=== PATIENT | female | born 1995 | race Caucasian/White ===

== ENCOUNTER 2017-11-05 09:57 | Inpatient (IN) | payer OTHER ==
[~2017-11-05] VITALS: Ht 167.6 cm; Wt 92.5 kg
[2017-11-05] VITALS (40 sets, daily range): BP systolic 114–151; BP diastolic 62–99
[2017-11-05] MEDS ORDERED: D5 LR IV SOLUTION 1,000 ML IV ONE (10:16)
[2017-11-05] MEDS ORDERED: D5 LR IV SOLUTION 1,000 ML IV SCH ×2 (10:38→11:34)
[2017-11-05] MEDS ORDERED: MINERAL OIL CONCENTRATE 99.9% 15 ML UDC TOP PRN (10:45)
[2017-11-05 10:51] LABS: BASOPHILS % (AUTO) 0 % (0-10); EOSINOPHILS # (AUTO) 0.1 10^3/uL (0.0-0.3); EOSINOPHILS % (AUTO) 1 % (0-10); HEMATOCRIT 33 % (35-52); LYMPHOCYTES % (AUTO) 16 % (12-44); MEAN CORPUSCULAR HEMOGLOBIN 33 PG (25-34); MEAN CORPUSCULAR HGB CONC 34 G/DL (32-36); MEAN CORPUSCULAR VOLUME 96 FL (80-99); MEAN PLATELET VOLUME 9.8 FL (7.4-10.4); MONOCYTES # (AUTO) 0.6 X 10^3 (0.0-1.0); MONOCYTES % (AUTO) 9 % (0-12); NEUTROPHILS # (AUTO) 4.7 X 10^3 (1.8-7.8); NEUTROPHILS % (AUTO) 74 % (42-75); PLATELET COUNT 178 10^3/uL (130-400); RED BLOOD COUNT 3.38 10^6/uL (4.35-5.85); RED CELL DISTRIBUTION WIDTH 14.1 % (10.0-14.5); WHITE BLOOD COUNT 6.3 10^3/uL (4.3-11.0)
[2017-11-05] MEDS ORDERED: OXYTOCIN/NORMAL SALINE 500 ML IV SCH ×3 (11:33→11:42)
--- NOTE | 2017-11-05 11:41 | History & Physical ---
History and Physical Date Seen by Provider: Nov 05, 2017 Time Seen by Provider: 11:37 this patient is a 21-year-old G1 white female with a due date of November 18, 2017 she presented to clinic today for follow-up due to oligohydramnios and mildly elevated blood pressure blood press. Her DTRs are 3-4 over 4 globallyres were increased today 145/95 and she showed protein in her urine. she reports having episodic fluid leakage from the vagina. She is not feeling with this as her bladder but she is unsure. She reports that is seen to be more than vaginal discharge. Nitrazine on this date was equivocal. Patient's JAIDEN 3 days ago was 43 and had been normal at 28 weeks gestation. She is GBS culture was negative on October 27, 2017. Sent to labor and delivery management secondary to her preeclampsia and concern for potential rupture membranes of unknown duration. Patient had an NST in my clinic that showed a reactive NST with occasional contractions the patient reported were taking her breath away Allergies are none Occasions are vitamins Medical social and surgical histories are per the antepartum record HEENT exam is normal Neck is supple no lymphadenopathy no thyromegaly Abdomen is gravid soft nontender nondistended Extremities show no clubbing cyanosis. There is no Homans sign. Pelvic exam shows a cervix that is not quite 3 cm dilated 89 percent effaced and 0 to -1 station. Position and soft Amniotomy was performed concurrent with this exam releasing a small amount of clear fluid Monitor shows normal heart rate pattern with occasional and irregular contractions Laboratory Tests 11/05/17 10:35 Assessment and plan 38-1/7 weeks gestation in a patient with elevated blood pressure consistent with mild preeclampsia and with oligohydramnios and with possible early labor and possible rupture membranes of unknown duration. Patient has been started on Pitocin and amniotomy has been performed. We will go ahead and add ampicillin for empiric prophylaxis. We anticipate a vaginal delivery 38-1/7 weeks gestation with preeclampsia and oligohydramnios and possible unknown duration rupture membranes Allergies and Home Medications Allergies Coded Allergies: No Known Drug Allergies (Unverified , 11/05/17) Clinical Quality Measures DVT/VTE Risk/Contraindication: Risk Factor Score Per Nursin RFS Level Per Nursing on Admit: 1=Low/No VTE PPX MATT LALA MD Nov 05, 2017 11:41 am
[2017-11-05] MEDS ORDERED: AMPICILLIN INJECTION 2,000 MG in NS (IVPB) 50 ML IV NR (11:45)
[2017-11-05] MEDS ORDERED: INFLUENZA TRIvalent 2017-2018 0.5 ML/45 MCG SYR IM ONE (11:45)
[2017-11-05] MEDS ORDERED: oxyCODONE/APAP 10/325MG (PERCOCET 10) TABLET PO PRN (11:45)
[2017-11-05] MEDS ORDERED: ONDANSETRON 4 MG/2 ML (SDV) Z0FRAN IVP PRN (11:45)
[2017-11-05] MEDS ORDERED: TETANUS,DIPTH,PERTUSS P/F (BOOSTRIX) 0.5 ML VIAL IM ONE (11:45)
[2017-11-05] MEDS ORDERED: MEASLES,MUMPS,RUBELLA 1 EA INJ SC ONE (11:45)
[2017-11-05] MEDS ORDERED: AMPICILLIN INJECTION 1,000 MG in NS (IVPB) 50 ML IV SCH (12:00)
[2017-11-05] MEDS ORDERED: SUFENTA 0.6MCG/ML BUPIVA 0.125 100 ML ONE (13:58)
[2017-11-05] MEDS ORDERED: LACTATED RINGERS 1,000 ML IV SCH (14:00)
[2017-11-05] MEDS ORDERED: BUPIVACAINE 0.25% 30 ML (SENSORCAINE) VIAL ONE (14:30)
[2017-11-05] MEDS ORDERED: LIDOCAINE PF 2% 5 ML (XYLOCAINE) VIAL ONE (14:30)
[2017-11-05] MEDS ORDERED: fentaNYL INJECTION 100 MCG/2 ML AMP ONE (14:31)
[2017-11-05] MEDS ORDERED: LIDOCAINE/EPI 2% 1:200,00 (XYLOCAINE) 10 ML VIAL ONE (18:26)
[2017-11-05] MEDS ORDERED: LIDOCAINE/EPI 1%-1:200,000 (XYLOCAINE) 10 ML VIAL INJ ONE (18:30)
[2017-11-05] MEDS ORDERED: WITCH HAZEL(TUCKS) 40 EA JAR ONE (19:27)
[2017-11-05] MEDS: BENZOCAINE/MENTHOL (DERMOPLAST) 56 ML CAN TP PRN (20:00)
[2017-11-05] MEDS: KETOROLAC 30 MG/ML VIAL IV SCH (20:05)
[2017-11-06] MEDS: KETOROLAC 30 MG/ML VIAL IV SCH ×3 (02:30→06:15)
--- NOTE | 2017-11-06 03:17 | OPERATIVE REPORT ---
DATE OF SERVICE: 11/05/2017 DELIVERY NOTE The patient delivered by term spontaneous vaginal delivery a viable female infant with Apgars of 8 and 9 at 1 and 5 minutes respectively. Weight was 7 pounds. time was 1841 and cord arterial blood gas is pending. The patient delivered over a midline episiotomy performed at the patient's request as the head was stuck on the perineum and she could not push it through. Episiotomy was performed under local analgesia augmenting her epidural. The patient pushed twice after the episiotomy delivering the infant. There was a nuchal cord x 1 that was easily released. Delivery completed in the usual manner. The infant was bulb suctioned on the delivery of the head and again on completion of delivery. the father cut the cord and the baby was passed to mom's abdomen. The placenta delivered spontaneously Arita. It was normal with a 3-vessel cord. The cervix vagina, perineum and rectum were examined and found to be intact, except for the midline episiotomy, which was repaired with a single suture of 3-0 Vicryl in the usual manner. Sponge and needle counts were correct on completion of the delivery and the repair. Estimated blood loss was around 200 mL. The patient tolerated the delivery well and recovered in the LDR. The baby remained with the mom. Job ID: [id number] DocumentID: [id number] Dictated Date: 11/05/2017 19:05:30 Needle Loom Tender Date: 11/06/2017 03:16:18 Dictated By: MATT LALA MD MTDD
[2017-11-06 06:00] VITALS: BP 129/79
[2017-11-06] MEDS: DOCUSATE SODIUM 100 MG (COLACE) CAP PO SCH ×3 (06:15→23:08)
--- NOTE | 2017-11-06 07:40 | Progress Note-Standard ---
Standard Progress Note Progress Notes/Assess & Plan Date Seen by Provider: Nov 06, 2017 Time Seen by Provider: 07:39 Progress/Assessment & Plan this patient is without complaint. She is ambulating, voiding, tolerating by mouth well, has good pain control. Patient denies chest pain, denies shortness of breath, denies headache, denies nausea vomiting. Vital Signs Date Time Temp Pulse Resp B/P (MAP) Pulse Ox O2 Delivery O2 Flow Rate FiO2 11/06/17 06:00 97.6 96 18 129/79 (96) 98 11/05/17 23:55 97.8 99 18 114/72 (86) 96 Room Air 11/05/17 20:00 98.4 113 18 143/77 (99) Room Air 11/05/17 19:45 98.8 107 18 143/65 (91) Room Air 11/05/17 19:30 98.6 111 18 143/71 (95) Room Air 11/05/17 19:15 99.2 112 18 149/67 (94) Room Air 11/05/17 18:30 94 148/89 (108) Room Air 11/05/17 18:15 95 139/79 (99) Room Air 11/05/17 18:00 85 134/90 (105) Room Air 11/05/17 17:45 88 133/84 (100) Room Air 11/05/17 17:30 97.5 86 151/88 (109) Room Air 11/05/17 17:15 74 18 144/81 (102) Room Air 11/05/17 17:00 73 135/67 (89) Room Air 11/05/17 16:45 97.1 82 119/85 (96) Room Air 11/05/17 16:30 88 146/81 (102) Room Air 11/05/17 16:15 90 142/66 (91) Room Air 11/05/17 16:00 86 130/62 (84) Room Air 11/05/17 15:45 80 18 122/84 (97) Room Air 11/05/17 15:35 87 128/66 (86) Room Air 11/05/17 15:30 91 137/83 (101) Room Air 11/05/17 15:28 95 129/65 (86) Room Air 11/05/17 15:25 93 126/68 (87) Room Air 11/05/17 15:20 91 132/62 (85) Room Air 11/05/17 15:15 92 130/70 (90) Room Air 11/05/17 15:10 106 121/93 (102) Room Air 11/05/17 15:06 107 147/76 (99) Room Air 11/05/17 15:03 81 134/68 (90) Room Air 11/05/17 15:00 104 142/72 (95) Room Air 11/05/17 14:45 84 142/88 (106) Room Air 11/05/17 14:30 98 145/78 (100) Room Air 11/05/17 14:15 83 Room Air 11/05/17 14:00 97.5 93 141/94 (110) Room Air 11/05/17 13:45 82 140/88 (105) Room Air 11/05/17 13:30 83 131/79 (96) Room Air 11/05/17 13:15 83 131/64 (86) Room Air 11/05/17 13:00 87 18 137/85 (102) Room Air 11/05/17 12:45 90 133/75 (94) Room Air 11/05/17 12:30 73 144/93 (110) Room Air 11/05/17 12:15 84 136/99 (111) Room Air 11/05/17 12:00 97 135/93 (107) Room Air 11/05/17 11:45 98 129/93 (105) Room Air 11/05/17 11:00 96.8 82 24 131/85 (100) 98 Room Air I & O 11/06/17 07:00 Intake Total 2100 ml Output Total 500 ml Balance 1600 ml vital signs are stable. Patient is afebrile. Fundus is firm below the umbilicus and nontender. Extremities show no clubbing or masses. There is no Homans sign. There is minimal pretibial pitting edema that is normal. Assessment and plan day number 1 status post term spontaneous vaginal delivery doing well. Plan is for routine convalescence care with discharge home and patient requests Final Diagnosis term spontaneous vaginal delivery MATT LALA MD Nov 06, 2017 7:40 am
[2017-11-06] MEDS ORDERED: OXYC-465 PO (07:41)
[2017-11-06] MEDS ORDERED: IBUP-1780 PO (07:41)
[2017-11-06] MEDS ORDERED: DOCU100C37 PO (07:41)
--- NOTE | 2017-11-06 07:43 | Discharge Instructions ---
Discharge Instructions Discharge Medications New, Converted or Re-Newed RX: RX on Chart Patient Instructions Patient Instructions: as directed Return to The Hospital For: as directed Activity & Diet Discharge Diet: No Restrictions Activity as Tolerated: No Orders-Post D/C & Referrals Follow Up Appt: Call to make follow up appt. for patient in 4 weeks. Activity Per routine post vaginal delivery instructions. Diet as tolerated Patient may shower or tub bathe as desired. MATT LALA MD Nov 06, 2017 7:43 am
[2017-11-06 09:00] VITALS: BP 132/75
[2017-11-06] MEDS: IBUPROFEN 800 MG (MOTRIN) TAB PO SCH ×3 (09:58→23:08)
[2017-11-06] MEDS ORDERED: INFLUENZA TRIvalent 2017-2018 0.5 ML/45 MCG SYR IM ONE (10:02)
[2017-11-06] MEDS ORDERED: TETANUS,DIPTH,PERTUSS P/F (BOOSTRIX) 0.5 ML VIAL IM ONE (10:02)
[2017-11-06 13:00] VITALS: BP 129/83
[2017-11-06 16:47] VITALS: BP 138/96
[2017-11-06 20:00] VITALS: BP 116/69
[2017-11-06 23:30] VITALS: BP 116/69
[2017-11-07] MEDS: IBUPROFEN 800 MG (MOTRIN) TAB PO SCH (05:03)
[2017-11-07 05:05] VITALS: BP 127/74
--- NOTE | 2017-11-07 08:16 | Progress Note-Standard ---
Standard Progress Note Progress Notes/Assess & Plan Date Seen by Provider: Nov 07, 2017 Time Seen by Provider: 08:15 Progress/Assessment & Plan this patient is without complaint. She is ambulating, voiding, tolerating by mouth well, has good pain control. Patient denies chest pain, denies shortness of breath, denies headache, denies nausea vomiting. Vital Signs Date Time Temp Pulse Resp B/P (MAP) Pulse Ox O2 Delivery O2 Flow Rate FiO2 11/06/17 06:00 97.6 96 18 129/79 (96) 98 11/05/17 23:55 97.8 99 18 114/72 (86) 96 Room Air 11/05/17 20:00 98.4 113 18 143/77 (99) Room Air 11/05/17 19:45 98.8 107 18 143/65 (91) Room Air 11/05/17 19:30 98.6 111 18 143/71 (95) Room Air 11/05/17 19:15 99.2 112 18 149/67 (94) Room Air 11/05/17 18:30 94 148/89 (108) Room Air 11/05/17 18:15 95 139/79 (99) Room Air 11/05/17 18:00 85 134/90 (105) Room Air 11/05/17 17:45 88 133/84 (100) Room Air 11/05/17 17:30 97.5 86 151/88 (109) Room Air 11/05/17 17:15 74 18 144/81 (102) Room Air 11/05/17 17:00 73 135/67 (89) Room Air 11/05/17 16:45 97.1 82 119/85 (96) Room Air 11/05/17 16:30 88 146/81 (102) Room Air 11/05/17 16:15 90 142/66 (91) Room Air 11/05/17 16:00 86 130/62 (84) Room Air 11/05/17 15:45 80 18 122/84 (97) Room Air 11/05/17 15:35 87 128/66 (86) Room Air 11/05/17 15:30 91 137/83 (101) Room Air 11/05/17 15:28 95 129/65 (86) Room Air 11/05/17 15:25 93 126/68 (87) Room Air 11/05/17 15:20 91 132/62 (85) Room Air 11/05/17 15:15 92 130/70 (90) Room Air 11/05/17 15:10 106 121/93 (102) Room Air 11/05/17 15:06 107 147/76 (99) Room Air 11/05/17 15:03 81 134/68 (90) Room Air 11/05/17 15:00 104 142/72 (95) Room Air 11/05/17 14:45 84 142/88 (106) Room Air 11/05/17 14:30 98 145/78 (100) Room Air 11/05/17 14:15 83 Room Air 11/05/17 14:00 97.5 93 141/94 (110) Room Air 11/05/17 13:45 82 140/88 (105) Room Air 11/05/17 13:30 83 131/79 (96) Room Air 11/05/17 13:15 83 131/64 (86) Room Air 11/05/17 13:00 87 18 137/85 (102) Room Air 11/05/17 12:45 90 133/75 (94) Room Air 11/05/17 12:30 73 144/93 (110) Room Air 11/05/17 12:15 84 136/99 (111) Room Air 11/05/17 12:00 97 135/93 (107) Room Air 11/05/17 11:45 98 129/93 (105) Room Air 11/05/17 11:00 96.8 82 24 131/85 (100) 98 Room Air I & O 11/06/17 07:00 Intake Total 2100 ml Output Total 500 ml Balance 1600 ml vital signs are stable. Patient is afebrile. Fundus is firm below the umbilicus and nontender. Extremities show no clubbing or masses. There is no Homans sign. There is minimal pretibial pitting edema that is normal. Assessment and plan day number 1 status post term spontaneous vaginal delivery doing well. Plan is for routine convalescence care with discharge home and patient requests November 07, 2017 Patient is without complaint. She is ambulating, voiding, tolerating by mouth, has good pain control, and is requesting discharge home. Vital Signs Date Time Temp Pulse Resp B/P (MAP) Pulse Ox O2 Delivery O2 Flow Rate FiO2 2/3/18 05:05 97.8 83 18 127/74 (91) 99 Room Air 11/06/17 23:30 97.9 91 18 116/69 (85) 98 Room Air 11/06/17 16:47 97.8 106 18 138/96 (110) 98 Room Air 11/06/17 13:00 97.9 98 18 129/83 (98) 98 Room Air 11/06/17 09:00 97.8 98 18 132/75 (94) 99 vital signs are stable. Patient is afebrile. Fundus is firm below the umbilicus and nontender. Extremities show no clubbing cyanosis. There is no Homans sign. Assessment and plan day number 2 status post term spontaneous vaginal delivery doing well. Plan is for discharge home with follow-up in clinic Final Diagnosis term spontaneous vaginal delivery MATT LALA MD Nov 07, 2017 8:16 am
[2017-11-07 09:02] VITALS: BP 117/81
[2017-11-07] MEDS ORDERED: WITCH HAZEL(TUCKS) 40 EA JAR ONE (09:08)
[2017-11-07] MEDS: BENZOCAINE/MENTHOL (DERMOPLAST) 56 ML CAN TP PRN (09:11)
[2017-11-07] MEDS ORDERED: WITCH HAZEL(TUCKS) 40 EA JAR TOP PRN (09:15)
[2017-11-07] MEDS: DOCUSATE SODIUM 100 MG (COLACE) CAP PO SCH (09:15)
== END 2017-11-07 10:30 | disposition home or self-care (01) | DRG 774 ==
LOC: LDRP 09:57
PROVIDERS: ADMIT Obstetrics & Gynecology; ATTEND Obstetrics & Gynecology
PROC: 10E0XZZ Delivery of Products of Conception, External Approach (ICD-10-PCS; principal; 2017-11-05)
PROC: 0W8NXZZ Division of Female Perineum, External Approach (ICD-10-PCS; 2017-11-05)
DX: O14.93 Unspecified pre-eclampsia, third trimester (principal); O41.03X0 Oligohydramnios, third trimester, not applicable or unspecified; O69.81X0 Labor and delivery complicated by cord around neck, without compression, not applicable or unspecified; Z3A.38 38 weeks gestation of pregnancy; Z37.0 Single live birth; Z23 Encounter for immunization
CPT/HCPCS: 36415; 85025; 86850; 86900; 86901; 90715

== ENCOUNTER → 2020-08-29 | Outpatient (CLI) | payer OTHER ==
[~2020-08-29] MED LIST: DOCU100C37 PO; IBUP-1780 PO; OXYC-556 PO
== END ==
LOC: LABNPT 11:11
PROVIDERS: ATTEND Obstetrics & Gynecology
DX: R74.02 Elevation of levels of lactic acid dehydrogenase [LDH] (principal)
CPT/HCPCS: 82570; 84156

== ENCOUNTER → 2020-09-04 | Outpatient (CLI) | payer OTHER | LOC: LABNPT 10:34 | PROVIDERS: ATTEND Obstetrics & Gynecology | DX: O14.93 Unspecified pre-eclampsia, third trimester (principal); Z3A.00 Weeks of gestation of pregnancy not specified | CPT/HCPCS: 82570; 84156 ==

== ENCOUNTER 2020-09-17 10:35 | Inpatient (IN) | payer BC, OTHER ==
[~2020-09-17] VITALS: Ht 167.7 cm; Wt 96.9 kg
[2020-09-17] VITALS (37 sets, daily range): BP systolic 100–148; BP diastolic 55–93
--- NOTE | 2020-09-17 10:35 | NUR ---
CLAUDIA AHUMADA presented to unit from home, with c/o INDUCTION. CLAUDIA AHUMADA weighed, gowned, voided, and to bed. EFHM and TOCO applied, VS taken. CLAUDIA AHUMADA oriented to bed controls, call light, TV, heat, and A/C controls.
[2020-09-17] MEDS ORDERED: OXYTOCIN PRE-MIX DRIP 500 ML IV SCH ×2 (11:00→18:15)
[2020-09-17 11:30] LABS: BASOPHILS % (AUTO) 0 % (0-10); EOSINOPHILS # (AUTO) 0.1 10^3/uL (0.0-0.3); EOSINOPHILS % (AUTO) 2 % (0-10); HEMATOCRIT 31 % (35-52); HEMOGLOBIN 9.8 g/dL (11.5-16.0); LYMPHOCYTES # (AUTO) 1.1 10^3/uL (1.0-4.0); LYMPHOCYTES % (AUTO) 14 % (12-44); MEAN CORPUSCULAR HEMOGLOBIN 30 pg (25-34); MEAN CORPUSCULAR HGB CONC 32 g/dL (32-36); MEAN CORPUSCULAR VOLUME 95 fL (80-99); MEAN PLATELET VOLUME 9.9 fL (9.0-12.2); MONOCYTES # (AUTO) 0.5 10^3/uL (0.0-1.0); MONOCYTES % (AUTO) 6 % (0-12); NEUTROPHILS # (AUTO) 5.8 10^3/uL (1.8-7.8); NEUTROPHILS % (AUTO) 76 % (42-75); PLATELET COUNT 192 10^3/uL (130-400); WHITE BLOOD COUNT 7.7 10^3/uL (4.3-11.0)
[2020-09-17] MEDS: D5 LR IV SOLUTION 1,000 ML IV SCH ×2 (11:31→14:30)
[2020-09-17] MEDS ORDERED: fentaNYL 2 mcg/ml BUPIVA 0.125 100 ML ONE (11:54)
[2020-09-17 11:55] LABS: ALANINE AMINOTRANSFERASE 11 U/L (0-55); ALBUMIN 3.5 GM/DL (3.2-4.5); ALKALINE PHOSPHATASE 117 U/L (40-136); BILIRUBIN,TOTAL 0.4 MG/DL (0.1-1.0); BUN/CREATININE RATIO 14; CALCIUM 8.7 MG/DL (8.5-10.1); CARBON DIOXIDE 18 MMOL/L (21-32); CHLORIDE 106 MMOL/L (98-107); CREATININE SERUM 0.63 MG/DL (0.60-1.30); GFR ESTIMATED > 60; GLUCOSE 118 MG/DL (70-105); POTASSIUM 3.4 MMOL/L (3.6-5.0); SODIUM 134 MMOL/L (135-145); TOTAL PROTEIN 6.7 GM/DL (6.4-8.2); URIC ACID 6.3 MG/DL (2.6-7.2)
--- NOTE | 2020-09-17 12:38 | NUR ---
Loc [employer] here for epidural placement. Procedure explained, consent reviewed and signed by anesthesia. Questions answered to patient's satisfaction. Time out taken to verify correct patient/procedure. Patient up to side of bed, assisted into sitting position. Betadine prep done x3 and sterile drape applied. Local done, see anesthesia record. Test dose given, see anesthesia record for drug and dosage. Epidural catheter secured in place. Epidural placement complete. Assisted back into bed, monitors adjusted. Epidural dosed, see anesthesia record. Epidural of Fentanyl/Bupivicaine @ 12 cc/hr stated per pump. Patient tolerated procedure well.
[2020-09-17] MEDS ORDERED: EPIDURAL (fentaNYL 2 MCG/ML BUPIVA 0.125%)100 ML BAG EPI PRN (13:15)
[2020-09-17] MEDS ORDERED: METOCLOPRAMIDE INJ 10 MG/2 ML (REGLAN) IV PRN (13:15)
[2020-09-17] MEDS ORDERED: diphenhydrAMINE 50 MG/ML INJ (BENADRYL) IV PRN (13:15)
[2020-09-17] MEDS ORDERED: LACTATED RINGERS 1,000 ML IV SCH (13:15)
[2020-09-17] MEDS ORDERED: NALOXONE 0.4 MG/ML 1 ML (NARCAN) VIAL IV PRN ×2 (13:15)
[2020-09-17] MEDS ORDERED: ONDANSETRON 4 MG/2 ML (SDV) Z0FRAN IV PRN (13:15)
[2020-09-17] MEDS ORDERED: BUPIVACAINE 0.25% 30 ML (SENSORCAINE) VIAL ONE (13:31)
[2020-09-17] MEDS ORDERED: BENZOCAINE/MENTHOL (DERMOPLAST) 60 ML CAN TP PRN (18:15)
[2020-09-17] MEDS ORDERED: KETOROLAC 30 MG/ML VIAL ONE (18:15)
[2020-09-17] MEDS ORDERED: ONDANSETRON 4 MG/2 ML (SDV) Z0FRAN IVP PRN (18:15)
[2020-09-17] MEDS ORDERED: oxyCODONE/APAP 5/325MG (PERCOCET 5) TABLET PO PRN (18:15)
[2020-09-17] MEDS: KETOROLAC 30 MG/ML VIAL IVP SCH ×2 (18:20→23:36)
--- NOTE | 2020-09-17 19:25 | NUR ---
Report to Harvinder Baires RN.
[2020-09-17] MEDS: DOCUSATE SODIUM 100 MG (COLACE) CAP PO SCH (19:59)
--- NOTE | 2020-09-17 20:00 | NUR ---
Pt resting in labor bed. Assessment completed. Pericare completed. pt ambulated to the bathroom. Positive void. pad and panties changed. pt ambulated back to bed. Pt assisted into w'c and taken down to 310. Pt orientated to room. call light within reach. Pt denies any needs at this time. Will continue to monitor.
--- NOTE | 2020-09-17 23:46 | OPERATIVE REPORT ---
DATE OF SERVICE: 09/17/2020 DELIVERY NOTE The patient delivered by term spontaneous vaginal delivery at 37 and 5/7 weeks' gestation, a viable male infant with Apgars of 8 and 9 at 1 and 5 minutes respectively. Weight is 7 pounds 4 ounces, cord blood pH that is pending. time of 1725. Delivery was accomplished over an intact perineum under epidural analgesia. The infant was bulb suctioned on delivery of the head and again on completion of delivery. Umbilical cord when pulseless was doubly clamped, father cut the cord, the baby was passed to mom's abdomen. The placenta delivered fairly promptly spontaneously Arita. It was normal with a 3-vessel cord. Placenta was sent to pathology for permanent section due to the patient's history of PIH. The cervix, vagina, rectum, and perineum were examined and found intact. Sponge and needle counts were correct on completion of the delivery. Bloss loss within the neighborhood of 200 mL. The patient tolerated the delivery well and remained in the LDR for recovery. The baby remained with the mom. Job ID: [id number] DocumentID: [id number] Dictated Date: 09/17/2020 19:15:58 Events Intern Date: 09/17/2020 23:45:56 Dictated By: MATT LALA MD MTDD
[2020-09-18] VITALS: BP 124/75
[2020-09-18 04:00] VITALS: BP 134/80
[2020-09-18] MEDS ORDERED: IBUPROFEN 800 MG (MOTRIN) TAB PO ONE (06:01)
[2020-09-18] MEDS: IBUPROFEN 800 MG (MOTRIN) TAB PO SCH ×4 (06:04→23:24)
--- NOTE | 2020-09-18 07:50 | Progress Note ---
Standard Progress Note Progress Notes/Assess & Plan Date Seen by a Provider: Sep 18, 2020 Time Seen by a Provider: 07:48 Progress/Assessment & Plan This patient is without complaint. She is ambulating, voiding, tolerating oral intake well and has good pain control. Vital Signs Date Time Temp Pulse Resp B/P (MAP) Pulse Ox O2 Delivery O2 Flow Rate FiO2 09/18/20 04:00 36.3 89 18 134/80 (98) Room Air 09/18/20 00:00 36.7 87 18 124/75 (91) Room Air 09/17/20 19:25 121 18 136/76 (96) Room Air 09/17/20 19:11 126 18 148/84 (105) Room Air 09/17/20 18:56 105 18 130/67 (88) Room Air 09/17/20 18:40 105 18 129/73 (91) Room Air 09/17/20 18:00 36.7 112 18 128/66 (86) Room Air 09/17/20 17:40 116 18 126/84 (98) Room Air 09/17/20 17:35 36.3 09/17/20 17:25 142 18 130/85 (100) Room Air 09/17/20 17:20 09/17/20 17:15 36.9 115 18 99 Room Air 09/17/20 17:00 104 18 135/83 (100) 100 Room Air 09/17/20 16:45 97 18 116/67 (83) 100 Room Air 09/17/20 16:30 100 18 132/80 (97) 100 Room Air 09/17/20 16:15 36.9 96 18 127/62 (83) 100 Non Rebreather 15.00 09/17/20 16:00 92 18 131/63 (85) 100 Non Rebreather 15.00 09/17/20 15:45 102 18 136/75 (95) 100 Non Rebreather 15.00 09/17/20 15:30 36.1 97 18 132/78 (96) 100 Non Rebreather 15.00 09/17/20 15:15 96 18 119/76 (90) 100 Non Rebreather 15.00 09/17/20 15:00 97 18 111/55 (73) 99 Non Rebreather 15.00 09/17/20 14:45 95 18 139/65 (89) 100 Room Air 09/17/20 14:30 36.0 90 18 104/56 (72) 100 Room Air 09/17/20 14:15 108 18 120/71 (87) 100 Room Air 09/17/20 14:00 35.8 111 18 135/77 (96) 100 Room Air 09/17/20 13:45 104 18 126/71 (89) 100 Room Air 09/17/20 13:30 101 18 124/67 (86) 100 Room Air 09/17/20 13:15 110 18 124/60 (81) 100 Room Air 09/17/20 13:00 68 18 100/57 (71) 100 Room Air 09/17/20 12:49 116 18 134/84 (101) 100 Room Air 09/17/20 12:45 36.7 89 18 137/69 (91) 100 Room Air 09/17/20 12:44 88 18 132/93 (106) 100 Room Air 09/17/20 12:43 92 18 137/69 (91) 100 Room Air 09/17/20 12:42 95 18 148/90 (109) 100 Room Air 09/17/20 12:40 100 18 141/92 (108) 100 Room Air 09/17/20 12:38 101 18 138/85 (102) 100 Room Air 09/17/20 12:30 100 18 135/74 (94) Room Air 09/17/20 12:15 98 18 133/76 (95) Room Air 09/17/20 12:00 94 18 130/68 (88) Room Air 09/17/20 11:45 97 18 131/75 (93) Room Air 09/17/20 11:30 106 18 130/73 (92) Room Air 09/17/20 10:57 37.1 109 16 98 Room Air I & O 09/18/20 07:00 Intake Total 2504 ml Balance 2504 ml Vital signs are stable patient is afebrile Fundus is firm below the umbilicus and nontender. Extremities show no clubbing or cyanosis. There is no Homans' sign. Assessment and plan day 1 status post spontaneous vaginal delivery at 37-5/7 weeks gestation. Patient is doing well and will be discharged home today or tomorrow as she prefers Final Diagnosis 37-5/7 weeks gestation spontaneous vaginal delivery MATT LALA MD Sep 18, 2020 07:50
[2020-09-18] MEDS ORDERED: IBUP-1780 PO (07:52)
[2020-09-18] MEDS ORDERED: OXYC1TAB87 PO (07:52)
[2020-09-18] MEDS ORDERED: DOCU100C37 PO (07:52)
--- NOTE | 2020-09-18 07:53 | Discharge Inst-Surgical ---
Discharge Inst-Surgical Depart Medication/Instructions New, Converted or Re-Newed RX: RX on Chart Consults/Follow Up Patient Instructions: As directed Orders & Referrals Follow Up Appt: Call to make follow up appt. for patient in 4 - 6 weeks. Activity Per routine post vaginal delivery instructions. Please call in RX to patient pharmacy. Diet as tolerated Patient may shower or tub bathe as desired. Activity Activity as Tolerated: No Diet Discharge Diet: No Restrictions MATT LALA MD Sep 18, 2020 07:53
--- NOTE | 2020-09-18 08:00 | NUR ---
Dr. Brito here to see patient. New orders received.
[2020-09-18 10:21] VITALS: BP 154/81
--- NOTE | 2020-09-18 10:21 | NUR ---
AM shift assessment completed and vital signs obtained, see interventions. Plan of care reviewed with patient. Patient verbalizes understanding and questions answered. Scheduled Colace PO given. Shower supplies provided.
[2020-09-18] MEDS: DOCUSATE SODIUM 100 MG (COLACE) CAP PO SCH ×2 (10:22→20:33)
[2020-09-18 12:32] VITALS: BP 153/79
--- NOTE | 2020-09-18 14:02 | Anesthesia-Regional Post-Op ---
Regional Patient Condition Mental Status: Alert, Oriented x3 Circulation: Same as Pre-Op Headache: Absent Sensation: Full Recovery Motor Block: Absent Post Op Complications Complications None Follow Up Care/Instructions Patient Instructions None needed. Anesthesia/Patient Condition Patient is doing well, no complaints, stable vital signs, no apparent adverse anesthesia problems. MIGUEL RACHEL DO Sep 18, 2020 14:02
[2020-09-18 18:06] VITALS: BP 127/81
[2020-09-18] MEDS ORDERED: IBUPROFEN 800 MG (MOTRIN) TAB PO SCH (18:15)
--- NOTE | 2020-09-18 21:19 | NUR ---
Pt resting in bed, holding nb. plan of care discussed. Assessment completed. Pt requesting cold tray. One provided. Pt denies any further needs. Will continue to monitor.
[2020-09-18 23:54] VITALS: BP 150/92
[2020-09-19] MEDS: IBUPROFEN 800 MG (MOTRIN) TAB PO SCH ×2 (06:01→14:50)
[2020-09-19 06:06] VITALS: BP 136/81
[2020-09-19 09:29] VITALS: BP 127/81
--- NOTE | 2020-09-19 09:29 | NUR ---
initial shift assessment completed, see interventions for further. POC reviewed- states understanding.
--- NOTE | 2020-09-19 14:41 | NUR ---
dismissal instructions given, verbalizes understanding. reviewed follow up appointment & D/C medications. signature page signed, placed on chart.
[2020-09-19] MEDS: DOCUSATE SODIUM 100 MG (COLACE) CAP PO SCH (14:50)
--- NOTE | 2020-09-19 14:55 | NUR ---
pt ambulated to private vehicle with this RN and @ side. infant secured in rear facing car seat. pt stable with no sx's of distress noted.,
--- NOTE | 2020-09-19 15:07 | NUR ---
Motshoaib and ace Rx called [facility] per pt's request.
== END 2020-09-19 14:55 | disposition home or self-care (01) | DRG 807 ==
LOC: LDRP 10:35
PROVIDERS: ADMIT Obstetrics & Gynecology; ATTEND Obstetrics & Gynecology
PROC: 10E0XZZ Delivery of Products of Conception, External Approach (ICD-10-PCS; principal; 2020-09-17)
PROC: 3E033VJ Introduction of Other Hormone into Peripheral Vein, Percutaneous Approach (ICD-10-PCS; 2020-09-17)
DX: O13.4 Gestational [pregnancy-induced] hypertension without significant proteinuria, complicating childbirth (principal); Z37.0 Single live birth; Z3A.37 37 weeks gestation of pregnancy; Z20.828 Contact with and (suspected) exposure to other viral communicable diseases
CPT/HCPCS: 36415; 80053; 82570; 83615; 84156; 84550; 85025; 86850; 86900; 86901; 87635

== ENCOUNTER → 2021-03-21 | Outpatient (CLI) | payer BC ==
[~2021-03-21] MED LIST changes: +OXYC1TAB87 PO
--- NOTE | 2021-03-21 11:18 | Diagnostic Imaging Report ---
PROCEDURE: CT neck soft tissue without contrast. TECHNIQUE: Multiple contiguous axial images were obtained through the neck without the use of intravenous contrast. Auto Exposure Controls were utilized during the CT exam to meet ALARA standards for radiation dose reduction. INDICATION: Swelling and left-sided neck. Family history of thyroid cancer. COMPARISON: None. FINDINGS: Enlarged left level 3 cervical lymph node adjacent the radiopaque marker indicating the area of interest. This measures 2.8 x 1.8 cm. There is also an enlarged left level 4 lymph node measuring 1.1 x 1.4 cm. No other cervical lymphadenopathy is identified. No mass is evident in the thyroid gland on this noncontrast exam. The pharynx and larynx demonstrate no appreciable mass. Normal appearing major salivary glands, floor of the mouth, tongue base, epiglottis and retropharyngeal space. The orbits and visualized intracranial contents are unremarkable. No acute osseous findings. Mastoids and visualized paranasal sinuses are clear. Lung apices are clear. IMPRESSION: 1. Markedly enlarged left level 4 cervical lymph node measuring at least 1.8 cm short axis dimension. There is also an enlarged left level 5 lymph node measuring up to 1.1 cm. Although findings could be infectious/inflammatory, a metastatic neoplastic process should be excluded. The level 4 lymph node should be readily amenable to an ultrasound-guided biopsy. 2. Remainder of the neck evaluation is limited by lack of IV contrast. The thyroid gland demonstrates no obvious mass. This could be better evaluated with ultrasound. Dictated by: Dictated on workstation # [id number]
== END ==
LOC: RAD 10:15
PROVIDERS: ATTEND Nurse Practitioner Family
DX: R59.0 Localized enlarged lymph nodes (principal); Z80.8 Family history of malignant neoplasm of other organs or systems
CPT/HCPCS: 70490